=== PATIENT | female | born 1955 | race Caucasian/White ===

== ENCOUNTER → 2016-07-05 | Outpatient (CLI) | payer OTHER | END | disposition home or self-care (01) | LOC: GMAH 11:53 | PROVIDERS: ATTEND Family Medicine | DX: E03.8 Other specified hypothyroidism (principal); E78.2 Mixed hyperlipidemia ==

== ENCOUNTER → 2017-07-12 | Outpatient (CLI) | payer BC | LOC: GMAH 10:16 | PROVIDERS: ATTEND Family Medicine | DX: Z00.01 Encounter for general adult medical examination with abnormal findings (principal); E03.8 Other specified hypothyroidism ==

== ENCOUNTER → 2018-10-05 | Outpatient (CLI) | payer MEDICARE | LOC: GMAM 13:21 | PROVIDERS: ATTEND Family Medicine | DX: E03.8 Other specified hypothyroidism (principal) ==

== ENCOUNTER → 2018-11-21 | Outpatient (CLI) | payer MEDICARE | LOC: GMA MATASK 10:43 | PROVIDERS: ATTEND Family Medicine | DX: E03.8 Other specified hypothyroidism (principal) ==

== ENCOUNTER → 2019-01-15 | Outpatient (CLI) | payer MEDICARE | LOC: GMA MATASK 10:49 | PROVIDERS: ATTEND Family Medicine | DX: I10 Essential (primary) hypertension (principal) ==

== ENCOUNTER → 2019-07-17 | Outpatient (CLI) | payer MEDICARE | LOC: GMA MATASK 11:20 | PROVIDERS: ATTEND Family Medicine | DX: E03.8 Other specified hypothyroidism (principal); E78.2 Mixed hyperlipidemia; I10 Essential (primary) hypertension ==

== ENCOUNTER 2019-08-02 12:07 | Emergency (ER) | payer MEDICARE ==
[2019-08-02] MEDS: SODIUM CHLORIDE 0.9% (FLUSH) 10 ML SYG IV PRN (12:33)
[2019-08-02] MEDS: ASPIRIN TABLET 325 MG TAB PO ONE (12:33)
--- NOTE | 2019-08-02 13:00 | ED.PDOC ---
History of Present Illness - General Chief Complaint: Cardiovascular Problem Stated Complaint: CP and lightheadedness Time Seen by Provider: 08/02/19 12:20 Source: patient, RN notes reviewed, Vital Signs reviewed Additional Information: This is a 63-year-old female with history of Sindy's thyroiditis presenting to the emergency department with chest pain onset 1040 this morning. Patient states she was doing nonstrenuous activities at work when the pain began. Pain is nonradiating, associated with some mild lightheadedness. No shortness of breath, no vomiting. No diaphoresis. Patient had a similar episode of pain several years ago for which she was transferred to [facility], had a negative nuclear medicine stress test at that time. She has never had a heart cath or stent placement. Patient states the pain lasted approximately 30 minutes and is completely resolved at this time. She took her blood pressure at home, 170/90, does not take any blood pressure medications at this time. She denies any rec ent travel, leg swelling, Or history of PE/DVT - History of Present Illness Allergies/Adverse Reactions: Allergies Penicillins Allergy (Verified 08/02/19 12:24) Home Medications: Ambulatory Orders Aspirin [Aspirin Adult Low Dose] 81 mg PO DAILY #30 tab 08/02/19 Levothyroxine Sodium 75 mcg PO DAILY 08/02/19 Lisinopril 10 mg PO DAILY #30 tab 08/02/19 Review of Systems - Review of Systems Constitutional: States: no symptoms reported. Denies: chills, fever EENTM: Denies: eye pain, ear pain, nose congestion, throat pain Respiratory: Denies: orthopnea, short of breath, stridor Cardiology: States: chest pain. Denies: edema, palpitations Gastrointestinal/Abdominal: Denies: abdominal pain, diarrhea, nausea, vomiting Genitourinary: Denies: dysuria, hematuria Musculoskeletal: Denies: back pain, joint pain, muscle pain, neck pain Skin: Denies: change in color, lesions Endocrine: States: no symptoms reported Hematologic/Lymphatic: States: no symptoms reported Past Medical History (General) - Patient Medical History Hx Seizures: No Hx Stroke: No Hx Dementia: No Hx Asthma: No Hx of COPD: No Hx Cardiac Disorders: No Hx Congestive Heart Failure: No Hx Pacemaker: No Hx Hypertension: No Hx Thyroid Disease: Yes - Hashimotos Hx Diabetes: No Hx Gastroesophageal Reflux: No Hx Renal Disease: No Hx Cancer: No Hx of HIV: No Hx MRSA: No Surgical History: no surgical history - Vaccination History Hx Tetanus, Diphtheria Vaccination: No Hx Influenza Vaccination: No Hx Pneumococcal Vaccination: Yes - Social History Hx Tobacco Use: Yes Hx Alcohol Use: Yes Hx Substance Use: No Hx Substance Use Treatment: No Hx Depression: No - Female History Patient is a Female of Child Bearing Age (10 -59 yrs old): No Patient : No Family Medical History - Family History Father Hx Cardiac Disease: Yes Mother Family History: No Known Hx Family Cancer: Yes Physical Exam - Physical Exam General Appearance: Alert, Comfortable Eyes, Ears, Nose, Throat Exam: PERRL/EOMI, normal ENT inspection, TMs normal Neck: non-tender, full range of motion, supple, normal inspection Respiratory: chest non-tender, lungs clear, normal breath sounds, no respiratory distress, no accessory muscle use Cardiovascular/Chest: normal peripheral pulses, regular rate, rhythm, no edema, no gallop, no JVD, no murmur Peripheral Pulses: radial,right: 2+, radial,left: 2+, dorsalis pedis,right: 2+, dorsalis pedis,left: 2+ Gastrointestinal/Abdominal: normal bowel sounds, non tender, soft Extremity: normal range of motion, non-tender, normal inspection Neurologic: no motor/sensory deficits, alert, normal mood/affect, oriented x 3 Skin Exam: normal color, warm/dry Progress - Progress Progress: 08/02/19 15:20 Patient remains pain free.I explained that there is no indication for admission at this time, but right strongly recommended she follow-up with her fitness coach later this week for recheck and to discuss need for any further provocative testing, stress test versus nuclear medicine perfusion scan. Strict warnings given to return the emergency room for worsening chest pain, shortness of breath, vomiting, or any other concerns. Patient and family are both comfortable with plan for discharge home and will return for any worsening. DDX: ACS, NE, PE (very low suspicion, Wells score 0, will defer Ddimer testing), low suspicion for aortic dissection given symmetric pulses, GERD MDM: I reviewed labs, EKG, chest x-ray, vital signs. EKG without acute ischemic changes, troponins negative x2. Chest x-ray clear. Heart score is 3, low risk. She was initially somewhat hypertensive on arrival, BP slightly improved with rest, but not back to normal, will start low-dose lisinopril. Initially recommended beta-blockers, but patient states she had been on a beta-qian before and had significant side effects and had to stop the medication. Strongly recommended that she follow-up with her fitness coach next week for recheck to discuss any further provocative testing that may need to occur. Strict chest pain warnings given Alfred Mathis DO [facility] #[id number] - Results/Orders Results/Orders: EKG interpreted by me at 12:11 PM. Sinus rhythm rate of 64, short SD interval at 110 ms, normal axis, otherwise normal intervals, nonspecific ST and T wave changes. Laboratory Results - last 24 hr 08/02/19 08/02/19 08/02/19 12:21 12:21 12:21 WBC 6.0 RBC 4.15 L Hgb 12.7 Hct 37.1 MCV 89.4 MCH 30.6 MCHC 34.2 RDW 12.6 Plt Count 266 MPV 7.7 Absolute Neuts (auto) 4.00 Absolute Lymphs (auto) 1.50 Absolute Monos (auto) 0.30 Absolute Eos (auto) 0.10 Absolute Basos (auto) 0.00 Neutrophils % 66.6 Lymphocytes % 25.8 Monocytes % 5.6 Eosinophils % 1.3 Basophils % 0.7 Sodium 136 Potassium 3.7 Chloride 104 Carbon Dioxide 24 Anion Gap 11.7 L BUN 14 Creatinine 0.56 L BUN/Creatinine Ratio 25.0 H Random Glucose 97 Serum Osmolality 272.3 L Calcium 9.1 Total Bilirubin 0.7 AST 25 ALT 23 Alkaline Phosphatase 42 Troponin I Cancelled B-Natriuretic Peptide 40.8 Serum Total Protein 6.8 Albumin 4.3 Globulin 2.5 Albumin/Globulin Ratio 1.7 08/02/19 08/02/19 12:21 14:20 WBC RBC Hgb Hct MCV MCH MCHC RDW Plt Count MPV Absolute Neuts (auto) Absolute Lymphs (auto) Absolute Monos (auto) Absolute Eos (auto) Absolute Basos (auto) Neutrophils % Lymphocytes % Monocytes % Eosinophils % Basophils % Sodium Potassium Chloride Carbon Dioxide Anion Gap BUN Creatinine BUN/Creatinine Ratio Random Glucose Serum Osmolality Calcium Total Bilirubin AST ALT Alkaline Phosphatase Troponin I < 0.02 < 0.02 B-Natriuretic Peptide Serum Total Protein Albumin Globulin Albumin/Globulin Ratio EXAM DESCRIPTION: Chest,1 View CLINICAL HISTORY: chest pain COMPARISON: April 13, 2014 IMPRESSION: Single AP portable upright view of the chest shows mild enlargement of the cardiac silhouette without pulmonary vascular congestion. Lungs are normally aerated and clear. No obvious pleural effusion or pneumothorax is seen. Electronically signed by: Juan Luis Szymanski MD 08/02/2019 1:10 PM CDT0 Departure - Departure Clinical Impression: Acute chest pain, Elevated blood-pressure reading without diagnosis of hypertension Disposition: Discharge to Home or Self Care Condition: Good Departure Forms: ED Discharge - Pt. Copy, Patient Portal Self Enrollment Instructions: DI for Chest Pain Referrals: Alex Moreno MD [Primary Care Provider] - 1-5 Days Prescriptions: Aspirin [Aspirin Adult Low Dose] 81 mg PO DAILY #30 tab Lisinopril 10 mg PO DAILY #30 tab Home Medications: Ambulatory Orders Aspirin [Aspirin Adult Low Dose] 81 mg PO DAILY #30 tab 08/02/19 Levothyroxine Sodium 75 mcg PO DAILY 08/02/19 Lisinopril 10 mg PO DAILY #30 tab 08/02/19 Additional Instructions: Follow-up with your fitness coach in [place] next week for recheck. Return to the emergency room immediately for worsening chest pain, shortness of breath, vomiting, leg swelling, fever, or any other concerns.
--- NOTE | 2019-08-02 13:12 | RAD ---
EXAM DESCRIPTION: Chest,1 View CLINICAL HISTORY: chest pain COMPARISON: April 13, 2014 IMPRESSION: Single AP portable upright view of the chest shows mild enlargement of the cardiac silhouette without pulmonary vascular congestion. Lungs are normally aerated and clear. No obvious pleural effusion or pneumothorax is seen. Electronically signed by: Juan Luis Szymanski MD 08/02/2019 1:10 PM CDT
[2019-08-02 15:49] VITALS: BP 170/91; TEMP 97.9; O2SAT 98
== END 2019-08-02 15:36 | disposition home or self-care (01) ==
LOC: ER 12:07
DX: R07.9 Chest pain, unspecified (principal); E06.3 Autoimmune thyroiditis; R03.0 Elevated blood-pressure reading, without diagnosis of hypertension; R42 Dizziness and giddiness; Z87.891 Personal history of nicotine dependence; Z79.899 Other long term (current) drug therapy; Z79.82 Long term (current) use of aspirin

== ENCOUNTER → 2020-01-20 | Outpatient (CLI) | payer MEDICARE | LOC: GMA MATASK 10:29 | PROVIDERS: ATTEND Family Medicine | DX: I10 Essential (primary) hypertension (principal); E03.8 Other specified hypothyroidism ==

== ENCOUNTER → 2020-03-26 | Outpatient (CLI) | payer MEDICARE ==
--- NOTE | 2020-03-26 21:00 | CT ---
EXAM DESCRIPTION: Chest w/wo Contrast : Computed Tomography. CLINICAL HISTORY: 64 years Female PRECORDIAL PAIN COMPARISON: CT scan of the abdomen and pelvis on the same visit. TECHNIQUE: Spiral-axial scans at 5 x 5 mm intervals through the lungs and thorax without and with IV contrast. 2.5 x 5 mm lung algorithm axial reconstructions. Coronal and sagittal 2.0 Mm reconstructions. No adverse reactions. Total Exam DLP: 647 mGy-cm. This exam was performed according to our departmental dose-optimization program which includes automated exposure control, adjustment of the mA and/or kV according to patient size and/or use of iterative reconstruction technique; to reduce radiation dose to as low as reasonably achievable (ALARA). Nodule measurements under 10 mm are given as mean value of 3 axes diameters. FINDINGS: Lungs and large airways: Minimal pleural-parenchymal scarring inferior lingula and left lower lobe. No abnormal nodules and no masses. No focal infiltrates. Pleural spaces: Minimal confluent and focal pleural thickening with no acute process. Mediastinum and Goldie: Small lymph nodes. No dominant soft tissue mass or abnormal enhancement. Great vessels and Heart: Minimal coronary artery calcifications. Minimal ectasia of the aortic arch with atherosclerotic calcification. Right subclavian calcification and calcification in the descending thoracic aorta. Soft tissues of neck base, axillae, and chest wall: Unremarkable axillary and subclavian lymph nodes. Upper abdomen: Please see report and images CT scan of the abdomen and pelvis on this visit. Osseous structures: Spondylosis at multiple disc spaces in the thoracic spine. Also included cervical spine. Thoracic foraminal narrowing. Minimal arthrosis shoulder clavicular and sternal joints. No parasternal mass. No lytic or blastic lesions. IMPRESSION: 1. Minimal lung parenchymal scarring. No abnormal lung nodule or mass. 2. Physiologic sized lymph nodes in the goldie, mediastinum, and axillary regions. 3. Minimal coronary artery calcifications. This could be related to the clinical history. No parasternal mass. 4. Diffuse spondylosis including thoracic spine. Electronically signed by: Niall Kerr MD 03/26/2020 8:58 PM [employer]
--- NOTE | 2020-03-26 22:44 | CT ---
EXAM DESCRIPTION: Abdomen/Pelvis w/wo Contrast: Computed Tomography. CLINICAL HISTORY: FUNCTIONAL DYSPEPSIA COMPARISON: CT scan of the chest and thorax without and with IV contrast on this visit. CT scan of the abdomen with and without contrast. TECHNIQUE: Spiral-axial scans at 5 x 5 mm intervals through the abdomen and pelvis before and after standard dose Optiray 320 nonionic IV contrast. No oral contrast. Coronal and sagittal 2.0 mm reconstructions. 5 mm Delayed helical-axial scans, liver through the pubic symphysis. No adverse reactions. Total Exam DLP 1753 mGy - cm. This exam was performed according to our departmental CT dose-optimization program which includes automated exposure control, adjustment of the mA and/or kV according to patient size and/or use of iterative reconstruction technique; to reduce radiation dose to as low as reasonably achievable (ALARA). FINDINGS: Lung bases and pleura: Please see images and report on chest CT scan performed on this visit. Liver, Stomach, Spleen, Adrenal Glands: Long axis right lobe liver 16.8 cm. No focal lesions. Question of a small hiatal hernia. Remaining organs negative. Pancreas, Gallbladder, Ducts: Gallbladder slightly dilated but no radiodense stones or abnormal enhancement. Minimal prominence of the pancreatic head 2.1 x 2.1 cm, with no abnormal enhancement. Pancreatic duct is dilated from the mid body to the tail. The body and tail appear atrophic. No peripancreatic mass or fatty stranding. Normal caliber common bile duct. Kidneys and Ureters: Small cortical cysts bilaterally. Otherwise unremarkable. Mesentery: No free air or free fluid. No fatty stranding. Aorta: Minimal tortuosity and atherosclerotic calcification. Small Bowel: Minimal fluid but no significant distention or air-fluid levels. Terminal Ileum/Cecum: Terminal ileum is minimally distended by fluid but no adjacent fatty stranding. Cecum is distended by fecal matter. Appendix not visualized. Colon: Moderate distention of the proximal mid colon by fecal matter but no air-fluid levels. Minimal amount of fecal burden descending colon and sigmoid colon. Mild redundancy of the sigmoid colon. No complications. Pelvic Organs: Uterus is retroverted with calcifications. Increased since the prior study. Possible calcification left cervix. Right ovarian follicle. Left ovary also seen. No fluid in the cul-de-sac. No radiodense stones in the urinary bladder. Spine and Bony Pelvis: Minimal loss of bone density and L4-L5 spondylosis. Abdominal Wall/Back Soft Tissues: Diastases of the umbilicus with no bowel incarceration. IMPRESSION: 1. Distended gallbladder. Common bile duct unremarkable. Dilated pancreatic duct associated with atrophy of the body and tail of the pancreas. No peripancreatic fluid stranding or masses. Consider ultrasound abdomen. 2. Moderate constipation proximal and mid colon. Minimal dilation of the terminal ileum. No small bowel obstruction. Electronically signed by: Niall Kerr MD 03/26/2020 10:42 PM [facility]
== END ==
LOC: CT 08:26
PROVIDERS: ATTEND Family Medicine
DX: Z01.812 Encounter for preprocedural laboratory examination (principal); K30 Functional dyspepsia; K82.8 Other specified diseases of gallbladder; K86.89 Other specified diseases of pancreas; K63.9 Disease of intestine, unspecified; J98.4 Other disorders of lung; I25.10 Atherosclerotic heart disease of native coronary artery without angina pectoris; M47.894 Other spondylosis, thoracic region; R07.2 Precordial pain

== ENCOUNTER → 2020-04-07 | Outpatient (CLI) | payer MEDICARE ==
--- NOTE | 2020-04-07 16:44 | US ---
EXAM DESCRIPTION: Abdomen,Complete: Ultrasound. CLINICAL HISTORY: 64 years Female DISEASE OF GALLBLADDER COMPARISON: CT abdomen and pelvis March 26 TECHNIQUE: Transabdominal scanning: grayscale and Doppler modes. FINDINGS: Gallbladder: normal size, shape, echogenicity; no intraluminal stones or sludge. No fluid around the gallbladder. No wall thickening. 2.1 mm Non-tender with transducer pressure. Common bile duct: caliber 4.3 mm within normal limits. Liver: normal echogenicity; contour liver capsule smooth where seen. No fluid around the liver. Intrahepatic biliary ducts normal caliber. Doppler hepatopedal flow and normal caliber portal vein 9.3 mm.. Long axis right lobe 13.2 cm. Pancreas: normal size and echogenicity. Duct not seen. Complete abdominal aorta: Normal caliber from the proximal segment to the distal bifurcation.. IVC: visualized and normal caliber. Right kidney: long axis measures 10.3 cm; volume 102.5 mL. Cortical echogenicity is normal. Normal cortical thickness. No echogenic stones; no hydronephrosis. Left kidney: long axis measures 9.9 cm; volume 130.3 mL.. Cortical echogenicity heterogeneously increased. Normal cortical thickness. Minimal lobulation of the capsule. 2 echogenic stones measuring 3.9 and 3.1 mm; no hydronephrosis. Spleen: Normal. No focal lesions.. 9.8 cm long axis. Other: None. IMPRESSION: 1. 2 echogenic stones in the left kidney with no hydronephrosis. Minimal lobulation of the left renal capsule. No perirenal fluid. Right kidney is unremarkable. Normal caliber of the abdominal aorta and IVC. 2. Gallbladder, spleen, and common bile duct unremarkable. No ascites. 3. Negative findings in the liver and pancreas. Electronically signed by: Niall Kerr MD 04/07/2020 4:43 PM [employer]
== END ==
LOC: US 08:27
PROVIDERS: ATTEND Family Medicine
DX: K82.9 Disease of gallbladder, unspecified (principal); N20.0 Calculus of kidney

== ENCOUNTER → 2020-05-04 | Outpatient (CLI) | payer MEDICARE ==
--- NOTE | 2020-05-05 09:31 | MRI ---
EXAM DESCRIPTION: Abdomen w/wo Contrast: MRI. CLINICAL HISTORY: 64 years Female ABD PAIN. COMPARISON: CT scan of abdomen and pelvis February 2020. Ultrasound abdomen April 07. TECHNIQUE: Multiplanar, high-field MRI, multiple sequences, without and with daughter on gadolinium IV contrast, 1 mL per 5 kg body weight: Abdomen. FINDINGS: Lung and Pleural bases: No effusion or prominent mass. Stomach, Liver, Adrenal Glands, and Spleen: No focal lesions in the liver. No abnormal contrast enhancement in these organs. No ascites. Small hiatal hernia. Gallbladder, Ducts, and Pancreas: Pancreatic duct is visualized with a possible diverticulum on the superior aspect 3.5 mm in length at the junction of the body and tail. The duct does not appear as prominent as on the previous CT scan. Normal caliber of the common hepatic duct and common bile duct with no filling defects. Gallbladder is distended. No filling defects. Kidneys: Small cortical cysts bilaterally larger on the left and less than 5 mm. No perinephric fluid and no hydronephrosis. Including ureters are not dilated. Aorta: Normal caliber with no mass. Small Bowel: Included segments with no distention or air-fluid levels. TI and Cecum: Nonvisualized. Colon: Moderate amount of fecal material in the included segments. Soft tissue Pelvis: Not included on the study. Abdominal wall and back soft tissues: Negative. Mesentery: No free fluid. No localized edema. Osseous structures: Negative IMPRESSION: 1. Pancreatic duct is visualized with possible diverticulum on the superior aspect of the junction of the body and tail. This does not appear dilated as was the appearance on the recent CT scan. Common bile duct and pancreatic duct not dilated in the pancreatic head and at the sphincter of Oddi. No filling defects in the ducts including the common hepatic duct and proximal common bile duct. Gallbladder prominent with no filling defects. 2. Small cyst bilateral kidney. Small gastric daniel hernia. No hepatic lesions or ascites. Electronically signed by: Niall Kerr MD 05/05/2020 9:30 AM [facility]
== END ==
LOC: MRI 09:03
PROVIDERS: ATTEND Internal Medicine Gastroenterology
DX: R93.3 Abnormal findings on diagnostic imaging of other parts of digestive tract (principal); K46.9 Unspecified abdominal hernia without obstruction or gangrene; K86.9 Disease of pancreas, unspecified; N28.1 Cyst of kidney, acquired